=== PATIENT | male | born 1955 | race Caucasian/White ===

== ENCOUNTER → 2017-08-27 | Outpatient (CLI) | payer OTHER ==
[2016-05-04 13:59] VITALS: BMI 27.1
[~2017-08-27] MED LIST: ACET-2007 PO; ACYC200P IV; ASPIRIN; AZIT500V18 IV; CEFE2FRO IV; CO Q10; CYCL10TA29 PO; DIA5 PO; FENT-23 TD; FISH OIL1 CAP PO; HYDR2TAB74 PO; IBUP-1671 PO; IOPAMIDOL 76% 75 ML INFUS BTL 75 ML ONE; LID5T TP; METH4TAB66 PO; METO25TA93 PO; OXYC-823 PO; RAMI5CAP63 PO; SIMV-44 PO; TRAM-420 PO; VANC1.5P19 IVF
--- NOTE | 2017-08-27 15:58 | RADIOLOGY IMAGING REPORT ---
FACILITY: [facility] - [place] PATIENT NAME: Pako Loredo : 1955 MR: [id number] V: [id number] EXAM DATE: ORDERING PHYSICIAN: MINOR KRUEGER TECHNOLOGIST: Location: [facility] - [place] Patient: Pako Loredo : 1955 Visit/Account:[id number] Date of Sevice: 08/27/2017 ABDOMEN/PELVIS W/WO CONTRAST Indication: Right lower quadrant and abdominal pain. Comparison: None. Technique: CT lung bases to the pubic symphysis were obtained without and with IV contrast. 100 cc o f Isovue 370 was used. One of the following dose optimization techniques was utilized in the performance of this exam: autom ated exposure control; adjustment of the mA and/or kV according to the patient's size; or use of an i terative reconstruction technique. Specific details can be referenced in the facility's radiology CT exam operational policy. Findings: Liver/gallbladder: Liver demonstrates normal enhancement. Gallbladder is unremarkable.. Spleen: Normal. Adrenals: Normal. Pancreas: Normal enhancement without evidence of mass. Kidneys/: Right and left kidney demonstrate normal enhancement without evidence of hydronephrosis or mass. There is a nonobstructing 3 mm calculus lower pole of the right kidney. Pelvic : Urinary bladder is normal. GI: There is no focal abnormality in the small bowel or colon. Vessels/spaces/nodes: Negative. Bones/soft tissues: There are no lytic or blastic bone lesions. Soft tissues are normal. Lung bases: Lung bases are clear. Impression: 1. Negative CT abdomen and pelvis. There is a nonobstructing 3 mm calculus lower pole right kidney. Report Dictated By: Tad Hood at 08/27/2017 3:47 PM Report E-Signed By: Tad Hood at 08/27/2017 3:52 PM WSN:[id number]
== END ==
LOC: CT 13:01
PROVIDERS: ATTEND Family Medicine
DX: N20.0 Calculus of kidney (principal)
CPT/HCPCS: 74178; Q9967

== ENCOUNTER → 2017-08-28 | Outpatient (CLI) | payer OTHER ==
[2016-05-04 13:59] VITALS: BMI 27.1
[~2017-08-28] MED LIST changes: -IOPAMIDOL 76% 75 ML INFUS BTL 75 ML ONE
--- NOTE | 2017-08-28 12:58 | RADIOLOGY IMAGING REPORT ---
FACILITY: [facility] - [place] PATIENT NAME: Pako Loredo : 1955 MR: [id number] V: [id number] EXAM DATE: ORDERING PHYSICIAN: ABIMAEL SIFUENTES TECHNOLOGIST: Location: [facility] [place] Patient: Pako Loredo : 1955 Visit/Account:[id number] Date of Sevice: 08/28/2017 2 VIEWS CHEST INDICATION: Cough. COMPARISON: 06/09/2016. FINDINGS: Cardiomediastinal silhouette and pulmonary vessels within normal limits. There is no focal infiltrate or lobar consolidation. There is no pneumothorax or pleural effusion. No nodule. Upper abdomen is unremarkable. No acute bony abnormality. IMPRESSION: 1. No acute cardiopulmonary process. Report Dictated By: Lalo Butler at 08/28/2017 12:53 PM Report E-Signed By: Lalo Butler at 08/28/2017 12:54 PM WSN:[id number]
== END ==
LOC: RAD 12:24
PROVIDERS: ATTEND Physician Assistant Medical
DX: R05 Cough (principal)
CPT/HCPCS: 71046

== ENCOUNTER 2018-07-24 08:19 | Emergency (ER) | payer OTHER ==
[2016-05-04 13:59] VITALS: Wt 68.0 kg
--- NOTE | 2018-07-24 08:31 | ER Report ---
History and Physical Time Seen By MD: 08:30 Hx. of Stated Complaint: right foot pain since thursday. no known trauma. unable to bear weight. redness seen throughout the area. pedal pulses present and equal HPI/ROS CHIEF COMPLAINT: Right foot swelling and pain out of proportion to exam HISTORY OF PRESENT ILLNESS: Patient is a 62-year-old male with a history significant for prior episodes of gout in the opposite distal extremity, proximal knee, hand. Patient reports that his symptoms have progressively worsened over the past 24 hours. The right foot distal to the ankle is mildly edematous with no pitting, mildly erythematous, not warm to the touch. Patient is neurovascularly intact in the distal digits. REVIEW OF SYSTEMS: Constitutional: No fever, no chills. Eyes: No discharge. ENT: No sore throat. Cardiovascular: No chest pain, no palpitations. Respiratory: No cough, no shortness of breath. Gastrointestinal: No abdominal pain, no vomiting. Genitourinary: No hematuria. Musculoskeletal: + Right lower extremity mild non pitting edema with mild erythema of the foot Skin: + mild erythema of the right foot Neurological: NV exam intact in the right distal extremity Allergies: Coded Allergies: oxycodone (Verified Allergy, Intermediate, nausea severe vomitting , 07/24/18) Home Meds Active Scripts Ondansetron 4 Mg Odt (ONDANSETRON 4 MG ODT) 4 Mg Tab.rapdis, 4 MG PO ONCE, #20 TAB Prov:NIKO LANDIS DO 07/24/18 Tramadol Hcl (TRAMADOL HCL) 50 Mg Tablet, 50 MG PO Q6H PRN for PAIN, #12 TAB 0 Refills Prov:NIKO LANDIS DO 07/24/18 Prednisone (PREDNISONE) 20 Mg Tablet, 40 MG PO QDAY for 7 Days, #14 TAB Prov:NIKO LANDIS DO 07/24/18 Discontinued Scripts Acyclovir Sod in Dextrose 5 % (Acyclovir 200 mg/100 ml-D5w) 200 Mg/100 Ml Piggyback, 650 MG IV Q8H@0200,1000,1800, #0 Prov:OLEG BELL MD 05/04/16 Cefepime Hcl/Dextrose, Iso-Osm (CEFEPIME 2 GM INJECTION) 2 Gm/100 Ml Froz.piggy, 2 GM IV q12@11,23, #0 Prov:OLEG BELL MD 05/04/16 Azithromycin (AZITHROMYCIN) 500 Mg Vial, 500 MG IV QHS, #0 VIAL Prov:OLEG BELL MD 05/04/16 Vancomycin/0.9 % Sod Chloride (Vanco 1.5 gm/500 ml-0.9% NaCl) 1.5 Gram/500 Ml Plast..bag, 1.5 G IVF q12@00,12, #0 Prov:OLEG BELL MD 05/04/16 Oxycodone Hcl (OXYCONTIN) 10 Mg Tab.er.12h, 10 MG PO Q12H, #0 Prov:OLEG BELL MD 05/04/16 Lidocaine (LIDOCAINE) 700 Mg Adh..patch, 1 EACH TP QDAY, #0 Prov:OLEG BELL MD 05/04/16 Acetaminophen (MAPAP) 325 Mg Tablet, 650 MG PO Q6H PRN for PAIN OR FEVER 100 OR GREATER, #0 Prov:OLEG BELL MD 05/04/16 Hx Smoking: No Smoking Status: Never Smoker Hx Substance Use Disorder: No Hx Alcohol Use: Yes Constitutional Vital Sign - Last 24 Hours 07/24/18 07/24/18 08:26 11:19 Temp 97.9 Pulse 99 88 Resp 16 16 B/P (MAP) 119/90 110/72 (85) Pulse Ox 92 92 O2 Delivery Room Air Room Air Physical Exam General Appearance: The patient is alert, has no immediate need for airway pr otection and no signs of toxicity. Uncomfortable appearing Eyes: Pupils equal and round no pallor or injection. ENT, Mouth: Mucous membranes are moist. Respiratory: There are no retractions, lungs are clear to auscultation. Cardiovascular: Regular rate and rhythm. [ ] Gastrointestinal: Abdomen is soft and non tender, no masses, bowel sounds normal. Neuro: NV intact in the distal right extremity Skin: + mild erythema of the right foot Musculoskeletal: Neck is supple non tender. + TTP right foot with mild non pitting edema, cap refill < 2 s DIFFERENTIAL DIAGNOSIS: After history and physical exam differential diagnosis was considered for gout, pseudogout, cellulitis, contusion, DVT, CHF exacerbation Medical Decision Making Data Points Result Diagram: 07/24/18 0940 07/24/18 0940 Laboratory Hematology Test 07/24/18 09:40 07/24/18 10:15 Red Blood Count 5.64 M/uL (4.00-5.60) Mean Corpuscular Volume 81.7 fL (80.0-96.0) Mean Corpuscular Hemoglobin 27.4 pg (26.0-33.0) Mean Corpuscular Hemoglobin Concent 33.5 g/dL (32.0-36.0) Red Cell Distribution Width 14.8 % (11.5-14.5) Mean Platelet Volume 7.3 fL (7.2-11.1) Neutrophils (%) (Auto) 69.2 % (39.4-72.5) Lymphocytes (%) (Auto) 20.4 % (17.6-49.6) Monocytes (%) (Auto) 8.5 % (4.1-12.4) Eosinophils (%) (Auto) 1.0 % (0.4-6.7) Basophils (%) (Auto) 0.9 % (0.3-1.4) Nucleated RBC Relative Count (auto) 0.1 /100WBC Neutrophils # (Auto) 7.4 K/uL (2.0-7.4) Lymphocytes # (Auto) 2.2 K/uL (1.3-3.6) Monocytes # (Auto) 0.9 K/uL (0.3-1.0) Eosinophils # (Auto) 0.1 K/uL (0.0-0.5) Basophils # (Auto) 0.1 K/uL (0.0-0.1) Nucleated RBC Absolute Count (auto) 0.01 K/uL Peripheral Blood Smear Yes Y/N Sodium Level 140 mmol/L (137-145) Potassium Level 3.9 mmol/L (3.5-5.0) Chloride Level 103 mmol/L (98-107) Carbon Dioxide Level 29 mmol/L (22-30) Blood Urea Nitrogen 15 mg/dl (9-21) Creatinine 1.00 mg/dl (0.66-1.25) Glomerular Filtration Rate Calc > 60.0 Random Glucose 112 mg/dl (75-110) Uric Acid 6.5 mg/dl (3.5-8.5) Calcium Level 9.4 mg/dl (8.4-10.2) Total Bilirubin 0.8 mg/dl (0.2-1.3) Aspartate Amino Transf (AST/SGOT) 23 U/L (0-35) Alanine Aminotransferase (ALT/SGPT) 25 U/L (0-56) Alkaline Phosphatase 86 U/L (0-126) Total Protein 7.5 g/dl (6.3-8.2) Albumin 4.3 g/dl (3.5-5.0) Urine Color Yellow Urine Clarity Clear Urine pH 6.0 pH (4.8-9.5) Urine Specific [place] 1.018 Urine Protein Negative mg/dL (NEGATIVE) Urine Glucose (UA) Negative mg/dL (NEGATIVE) Urine Ketones Negative mg/dL (NEGATIVE) Urine Blood Negative (NEGATIVE) Urine Nitrite Negative (NEGATIVE) Urine Bilirubin Negative (NEGATIVE) Urine Urobilinogen Negative mg/dL (0.2-1.9) Urine Leukocyte Esterase Negative (NEGATIVE) Urine RBC None /HPF (0-2/HPF) Urine WBC 1 /HPF (0-5/HPF) Urine Squamous Epithelial Cells None /LPF (</=FEW) Urine Bacteria Negative /HPF (NONE-FEW) Urine Hyaline Casts Few /LPF (NONE-FEW) Urine Mucus Few /HPF (NONE-FEW) Chemistry Test 07/24/18 09:40 07/24/18 10:15 White Blood Count 10.8 k/uL (4.5-11.0) Red Blood Count 5.64 M/uL (4.00-5.60) Hemoglobin 15.4 g/dL (14.0-18.0) Hematocrit 46.0 % (42.0-52.0) Mean Corpuscular Volume 81.7 fL (80.0-96.0) Mean Corpuscular Hemoglobin 27.4 pg (26.0-33.0) Mean Corpuscular Hemoglobin Concent 33.5 g/dL (32.0-36.0) Red Cell Distribution Width 14.8 % (11.5-14.5) Platelet Count 234 K/uL (150-450) Mean Platelet Volume 7.3 fL (7.2-11.1) Neutrophils (%) (Auto) 69.2 % (39.4-72.5) Lymphocytes (%) (Auto) 20.4 % (17.6-49.6) Monocytes (%) (Auto) 8.5 % (4.1-12.4) Eosinophils (%) (Auto) 1.0 % (0.4-6.7) Basophils (%) (Auto) 0.9 % (0.3-1.4) Nucleated RBC Relative Count (auto) 0.1 /100WBC Neutrophils # (Auto) 7.4 K/uL (2.0-7.4) Lymphocytes # (Auto) 2.2 K/uL (1.3-3.6) Monocytes # (Auto) 0.9 K/uL (0.3-1.0) Eosinophils # (Auto) 0.1 K/uL (0.0-0.5) Basophils # (Auto) 0.1 K/uL (0.0-0.1) Nucleated RBC Absolute Count (auto) 0.01 K/uL Peripheral Blood Smear Yes Y/N Glomerular Filtration Rate Calc > 60.0 Uric Acid 6.5 mg/dl (3.5-8.5) Calcium Level 9.4 mg/dl (8.4-10.2) Total Bilirubin 0.8 mg/dl (0.2-1.3) Aspartate Amino Transf (AST/SGOT) 23 U/L (0-35) Alanine Aminotransferase (ALT/SGPT) 25 U/L (0-56) Alkaline Phosphatase 86 U/L (0-126) Total Protein 7.5 g/dl (6.3-8.2) Albumin 4.3 g/dl (3.5-5.0) Urine Color Yellow Urine Clarity Clear Urine pH 6.0 pH (4.8-9.5) Urine Specific [place] 1.018 Urine Protein Negative mg/dL (NEGATIVE) Urine Glucose (UA) Negative mg/dL (NEGATIVE) Urine Ketones Negative mg/dL (NEGATIVE) Urine Blood Negative (NEGATIVE) Urine Nitrite Negative (NEGATIVE) Urine Bilirubin Negative (NEGATIVE) Urine Urobilinogen Negative mg/dL (0.2-1.9) Urine Leukocyte Esterase Negative (NEGATIVE) Urine RBC None /HPF (0-2/HPF) Urine WBC 1 /HPF (0-5/HPF) Urine Squamous Epithelial Cells None /LPF (</=FEW) Urine Bacteria Negative /HPF (NONE-FEW) Urine Hyaline Casts Few /LPF (NONE-FEW) Urine Mucus Few /HPF (NONE-FEW) Urinalysis Test 07/24/18 10:15 Urine Color Yellow Urine Clarity Clear Urine pH 6.0 pH (4.8-9.5) Urine Specific [place] 1.018 Urine Protein Negative mg/dL (NEGATIVE) Urine Glucose (UA) Negative mg/dL (NEGATIVE) Urine Ketones Negative mg/dL (NEGATIVE) Urine Blood Negative (NEGATIVE) Urine Nitrite Negative (NEGATIVE) Urine Bilirubin Negative (NEGATIVE) Urine Urobilinogen Negative mg/dL (0.2-1.9) Urine Leukocyte Esterase Negative (NEGATIVE) Urine RBC None /HPF (0-2/HPF) Urine WBC 1 /HPF (0-5/HPF) Urine Squamous Epithelial Cells None /LPF (</=FEW) Urine Bacteria Negative /HPF (NONE-FEW) Urine Hyaline Casts Few /LPF (NONE-FEW) Urine Mucus Few /HPF (NONE-FEW) EKG/Imaging Imaging PATIENT NAME: Pako Loredo : 1955 MR: [id number] V: [id number] EXAM DATE: ORDERING PHYSICIAN: NIKO LANDIS TECHNOLOGIST: Location: [facility] - [place] Patient: Pako Loredo : 1955 Visit/Account:[id number] Date of Sevice: 07/24/2018 ANKLE 2 VIEW RIGHT HISTORY: foot swelling COMPARISON: None FINDINGS: No evidence of acute fracture or dislocation. Talar dome is smooth in contour. Bohler angle is well maintained. Base of the 5th metatarsal is intact. Chronic ossicle at the talonavicular articulation. IMPRESSION: 1. No acute osseous abnormality.PATIENT NAME: Pako Loredo : 1955 MR: [id number] V: [id number] EXAM DATE: ORDERING PHYSICIAN: NIKO LANDIS TECHNOLOGIST: Location: [facility] - [place] Patient: Pako Loredo : 1955 Visit/Account:[id number] Date of Sevice: 07/24/2018 FOOT 2 VIEW RIGHT HISTORY: foot swelling COMPARISON: None FINDINGS: Tiny ossific density at the sesamoid bones at the first MTP joint. Mild degenerative changes at the third PIP joint with osteophytes. Bohler angle is well maintained. Base of the 5th metatarsal is intact. TMT joints are well aligned. Chronic appearing ossicle at the talonavicular articulation. No periostitis. IMPRESSION: 1. Tiny ossific density at the sesamoid bones at the first MTP joint. Recommend clinical correlation for pain at this site. This could be degenerative or traumatic. 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 X-ray imaging showed no acute fractures or bony erosions. Patient did have a prior history of gout and other extremities including the left foot, knee, distal upper extremity. Symptoms reportedly had started on Thursday and acutely worsened with mild edema, mild erythema and not consistent with cellulitis. Patient was given normal saline fluid bolus, Toradol, fentanyl, prednisone. Patient was given prescription for prednisone 7 day course, Zofran, tramadol for outpatient symptomatic management. Return precautions provided. Close PCP follow-up recommended. Patient was stable at time of discharge.. Decision to Disposition Date: Jul 24, 2018 Decision to Disposition Time: 11:02 Depart Departure Latest Vital Signs Vital Signs Date Time Temp Pulse Resp B/P (MAP) Pulse Ox O2 Delivery O2 Flow Rate FiO2 07/24/18 11:19 88 16 110/72 (85) 92 Room Air 07/24/18 08:26 97.9 Impression: Primary Impression: Gout attack Condition: Improved Disposition: HOME OR SELF-CARE Referrals: MINOR KRUEGER MD (PCP) New Scripts Ondansetron 4 Mg Odt (ONDANSETRON 4 MG ODT) 4 Mg Tab.rapdis 4 MG PO ONCE, #20 TAB Prov: NIKO LANDIS DO 07/24/18 Tramadol Hcl (TRAMADOL HCL) 50 Mg Tablet 50 MG PO Q6H PRN for PAIN, #12 TAB 0 Refills Prov: NIKO LANDIS DO 07/24/18 Prednisone (PREDNISONE) 20 Mg Tablet 40 MG PO QDAY for 7 Days, #14 TAB Prov: NIKO LANDIS DO 07/24/18 Patient Instructions: Gout (ED) Additional Instructions: Please take prednisone 40 mg for 7 days for treatment of gout. Please take naproxen 500 mg twice daily until alleviation of symptoms. Please follow-up with your family doctor on Thursday. Please return immediately if you develop worsening rash, fevers, worsening pain, numbness. LANDIS,NIKO S DO Jul 24, 2018 08:31
[2018-07-24] MEDS ORDERED: predniSONE 20 MG TAB PO ONE (09:00)
[2018-07-24] MEDS ORDERED: fentaNYL CITR 100 MCG/2 ML AMP IVP ONE (09:00)
[2018-07-24] MEDS ORDERED: KETOROLAC 30 MG/ML VIAL IVP ONE (09:00)
[2018-07-24] MEDS ORDERED: NS(*) 0.9% 1000 ML BAG 1,000 ML IV ONE (09:20)
[2018-07-24 09:56] LABS: PLATELET COUNT, AUTOMATED 234 K/uL (150-450)
--- NOTE | 2018-07-24 10:22 | RADIOLOGY IMAGING REPORT ---
FACILITY: [facility] PATIENT NAME: Pako Loredo : 1955 MR: [id number] V: [id number] EXAM DATE: ORDERING PHYSICIAN: NIKO LANDIS TECHNOLOGIST: Location: [facility] - [place] Patient: Pako Loredo : 1955 Visit/Account:[id number] Date of Sevice: 07/24/2018 ANKLE 2 VIEW RIGHT HISTORY: foot swelling COMPARISON: None FINDINGS: No evidence of acute fracture or dislocation. Talar dome is smooth in contour. Bohler angle is well maintained. Base of the 5th metatarsal is intact. Chronic ossicle at the talonavicular artic ulation. IMPRESSION: 1. No acute osseous abnormality. Report Dictated By: Mihcael Petersen MD at 07/24/2018 10:18 AM Report E-Signed By: Michael Petersen MD at 07/24/2018 10:19 AM WSN:[id number]
--- NOTE | 2018-07-24 10:24 | RADIOLOGY IMAGING REPORT ---
FACILITY: [facility] - [place] PATIENT NAME: Pako Loredo : 1955 MR: [id number] V: [id number] EXAM DATE: ORDERING PHYSICIAN: NIKO LANDIS TECHNOLOGIST: Location: [facility] Patient: Pako Loredo : 1955 Visit/Account:[id number] Date of Sevice: 07/24/2018 FOOT 2 VIEW RIGHT HISTORY: foot swelling COMPARISON: None FINDINGS: Tiny ossific density at the sesamoid bones at the first MTP joint. Mild degenerative change s at the third PIP joint with osteophytes. Bohler angle is well maintained. Base of the 5th metatarsa l is intact. TMT joints are well aligned. Chronic appearing ossicle at the talonavicular articulation . No periostitis. IMPRESSION: 1. Tiny ossific density at the sesamoid bones at the first MTP joint. Recommend clinical correlation for pain at this site. This could be degenerative or traumatic. Report Dictated By: Michael Petersen MD at 07/24/2018 10:19 AM Report E-Signed By: Michael Petersen MD at 07/24/2018 10:20 AM WSN:[id number]
[2018-07-24] MEDS ORDERED: PRED20TA6 PO (11:05)
[2018-07-24] MEDS ORDERED: ONDA4TAB9 PO (11:05)
[2018-07-24] MEDS ORDERED: TRAM-420 PO (11:05)
[2018-07-24 11:19] VITALS: BP 110/72
== END 2018-07-24 11:21 | disposition home or self-care (01) ==
LOC: ER 08:45
DX: M10.9 Gout, unspecified (principal)
CPT/HCPCS: 36415; 73600; 73620; 81001; 84550; 85025; 96361; 96374; 96375; 99284; J1885; J3010; J7030; J7512; 82040; 82247; 82310; 82374; 82435; 82565; 82947; 84075; 84132; 84155; 84295; 84450; 84460; 84520

== ENCOUNTER → 2018-09-20 | Outpatient (CLI) | payer OTHER ==
[2016-05-04 13:59] VITALS: BMI 27.1
[~2018-09-20] MED LIST changes: +ONDA4TAB9 PO; +PRED20TA6 PO
--- NOTE | 2018-09-20 12:45 | RADIOLOGY IMAGING REPORT ---
FACILITY: [facility] - [place] PATIENT NAME: Pako Loredo : 1955 MR: [id number] V: [id number] EXAM DATE: ORDERING PHYSICIAN: FAIZAN CARMONA TECHNOLOGIST: Location: [facility] Patient: Pako Loredo : 1955 Visit/Account:[id number] Date of Sevice: 09/20/2018 Technique: ANKLE 3 VIEW MIN RIGHT HISTORY: Pain Comparison studies: July 24, 2018 FINDINGS: There is no acute fracture. Small cortical fragments adjacent to the medial aspect of the talar body and dorsal aspect of the talonavicular joint are unchanged. The ankle mortise is preserve d. IMPRESSION: 1. No acute osseous process. Report Dictated By: Abdirashid Madison DO at 09/20/2018 12:35 PM Report E-Signed By: Abdirashid Madison DO at 09/20/2018 12:39 PM WSN:[id number]
== END ==
LOC: RAD 11:47
PROVIDERS: ATTEND Family Medicine
DX: M25.571 Pain in right ankle and joints of right foot (principal)